=== PATIENT | male | born 2000 | race Caucasian/White ===

== ENCOUNTER 2024-12-25 16:20 | Emergency (ER) | payer BC | END 2024-12-25 17:47 | disposition home or self-care (01) | LOC: JP.ED 16:20 | DX: S42.031A Displaced fracture of lateral end of right clavicle, initial encounter for closed fracture (principal); S92.811A Other fracture of right foot, initial encounter for closed fracture; Z88.0 Allergy status to penicillin; X58.XXXA Exposure to other specified factors, initial encounter | CPT/HCPCS: 73030-26-RT; 73030-RT; 73630-26-RT; 73630-RT; 99284 ==

== ENCOUNTER 2025-01-16 07:22 | Day surgery (SDC) | payer BC ==
[2025-01-16] MEDS ORDERED: Ondansetron 4 MG/2 ML SDV ONE (07:42)
[2025-01-16] MEDS ORDERED: Propofol 200 MG/20 ML SDV ONE (07:42)
[2025-01-16] MEDS ORDERED: fentaNYL 100 MCG/2 ML SDV ONE ×2 (07:42→08:58)
[2025-01-16] MEDS ORDERED: Midazolam 1 MG/ML 2 ML SDV ONE (07:42)
[2025-01-16] MEDS ORDERED: Dexamethasone 4 MG/ML SDV ONE (07:42)
[2025-01-16] MEDS: Nozin Nasal Sanitizer NASBOTH ONE (07:58)
[2025-01-16] MEDS: Lactated Ringers 1,000 ML IV SCH (08:12)
[2025-01-16] MEDS ORDERED: fentaNYL 250 MCG/5 ML SDV ONE (08:35)
[2025-01-16] MEDS: Acetaminophen/HYDROcodone 325-5 MG Tab PO PRN (11:19)
== END 2025-01-16 12:39 | disposition home or self-care (01) ==
LOC: JP.SDS 07:22
PROVIDERS: ATTEND Specialist
DX: S42.031A Displaced fracture of lateral end of right clavicle, initial encounter for closed fracture (principal); F17.200 Nicotine dependence, unspecified, uncomplicated; Z88.1 Allergy status to other antibiotic agents
CPT/HCPCS: 23515; 73000; A9270; C1713; J0665; J0690; J1100; J2250; J2405; J2704; J3010; J7120; 00450-QZ